=== PATIENT | female | born 1985 ===

== ENCOUNTER 2017-09-28 04:53 | Emergency (ER) | payer MEDICAID ==
[2017-09-28 05:31] VITALS: BMI 30.8
[2017-09-28] MEDS ORDERED: Lactated Ringer's 1,000 ML IV ONE (05:42)
[2017-09-28 06:25] LABS: URINE BILIRUBIN NEGATIVE (NEGATIVE); URINE BLOOD MODERATE (NEGATIVE); URINE CLARITY CLEAR (Clear); URINE COLOR STRAW (YELLOW); URINE GLUCOSE (UA) NEG (Normal); URINE LEUKOCYTE ESTERASE NEG Leu/uL (Negative); URINE NITRATE NEGATIVE (NEGATIVE); URINE PROTEIN NEGATIVE (NEGATIVE); URINE UROBILINOGEN 0.2-1.0 mg/dL (0.2-1.0)
--- NOTE | 2017-09-28 08:53 | OBHP ---
Datetime: 09/28/2017 07:56 IP Adm Impression: , intrauterine IP Admit Plan: Observation/Evaluation; Discharge home Admit Comment, IP Provider: This is 31 y/o F, , IUP@35 weeks by LMP and 1st trimU/S, comes to t he [facility] c/o mild vaginal bleeding which started 4 am this morning. Patient admits having sex lastnigh t. Denies any fever, chills, chest pain, SOB or dizziness. Denies LOF, CTX. Records reviewed and U/S from july 2017 shows : Posterior Placenta, No previ a PMD: Dr. Barber [facility]: No issue with this so far PMH: Denies PSH: Denies OBGYN: , 2 early miscar, 1x FT Allg: Denies SH: Denies alcohol, smoking or illicit drug use FH: HTN, DM VS: Stable PE: Cardiopulmonary and neuro exam unremarkable Pelvic exam: small amont of Clotted blood in vaginal vault, scant bleeding per cervical oz, also 3mm small ectocervical polyp was seen. Cervix is 1 cm and 70% Effa A/P: 31 y/o female with 35GA, Postcoital bleeding- most likely due to Ectocervical polyp Threatened labor - IVF - UA (Negative for any infection) - Discharge home - PTL and 3rd trimBleeding precautions discussed with patient - Pelvic rest to avoid ptd - Follow up with PMD in 2 days Patient was seen and examined with Dr. Heller --- Lester Looney, PGY-1 Pt seen _ examined by me. Agree with above assessment and plan. Pelvic Type - PN: Adequate Extremities - PN: Normal Abdomen - PN: Normal Back - PN: Normal Lungs - PN: Normal Heart - PN: Normal Thyroid - PN: Normal Neurologic - PN: Normal HEENT - PN: Normal General - PN: Normal Presentation-Admit: Vertex FHR - Baseline A Provider: 140 Membranes, Provider: Intact Comments, ACOG Physical Exam: Bleeding was seen with a small polyp in vagina ectocervical polyp vs postcoital bleeding vs threatened PT labor U/S: Vertex presentation EGA AdmitDate IP: 35.0 Vital Signs Provider: Reviewed IP Chief Complaint: Vaginal bleeding NICHD Variability Prov Fetus A: Moderate 6-25bpm NICHD Accel Fetus A IP Provider: [id number] FHR Category Provider Fetus A: Category I NICHD Decel Fetus A IP Provider: None Dilatation, Provider: 1 Effacement, Provider: 70 Station, Provider: -3 Genitourinary Exam: Abnormal
[2017-09-28 12:17] VITALS: BP 115/75; PULSE 76; TEMP 98.4
== END 2017-09-28 07:56 | disposition home or self-care (01) ==
LOC: H.EROB2 04:53
DX: O26.93 Pregnancy related conditions, unspecified, third trimester (principal); N93.0 Postcoital and contact bleeding; O47.9 False labor, unspecified; N84.1 Polyp of cervix uteri; Z3A.35 35 weeks gestation of pregnancy
CPT/HCPCS: 81003; 99283; J7120

== ENCOUNTER 2017-10-25 04:40 | Inpatient (IN) | payer MEDICAID ==
[2017-10-25] MEDS ORDERED: Phenaphthazine-PH Test Paper VI ONE (04:58)
[2017-10-25 05:46] VITALS: BMI 31.5
[2017-10-25] MEDS ORDERED: Oxytocin 30 UNITS in Sodium Chloride 0.9% 500 ML IV SCH (06:00)
[2017-10-25] MEDS ORDERED: Lactated Ringer's 1,000 ML IV SCH ×3 (06:00)
[2017-10-25 06:01] LABS: BASO # 0.1 K/uL (0.0-0.2); BASO % 1.1 % (0.0-2.0); EOS # 0.1 K/uL (0.0-0.7); EOS % 0.5 % (0.0-4.0); HEMOGLOBIN 12.3 g/dL (12.0-16.0); LYMPH # 2.1 K/uL (1.0-4.3); LYMPH % 17.1 % (20.0-40.0); MEAN CELL VOLUME 96.8 fl (81.0-99.0); MEAN CORPUSCULAR HEMOGLOBIN 32.6 pg (27.0-31.0); MEAN CORPUSCULAR HGB CONC 33.7 g/dL (33.0-37.0); MEAN PLATELET VOLUME 8.7 fl (7.2-11.7); MONO # 0.9 K/uL (0.0-0.8); MONO % 7.7 % (0.0-10.0); NEUT % 73.6 % (50.0-75.0); RBC 3.78 Mil/uL (3.80-5.20); RED CELL DISTRIBUTION WIDTH 13.3 % (11.5-14.5); WHITE BLOOD COUNT 12.2 K/uL (4.8-10.8)
[2017-10-25 06:17] VITALS: TEMP 98.4; O2SAT 100
[2017-10-25] MEDS ORDERED: Lidocaine 1% Inj (20ml) ONE (07:20)
--- NOTE | 2017-10-25 08:32 | OBADHP ---
Datetime: 10/25/2017 06:11 Admit Comment, IP Provider: 31 y/o female with IUP at 38.6 weeks (SKIP 11/02) presents with c omplaints of worsening ctx since last night and leakage of fluids. Denies vb. +FM. ROS negative PNC: [facility], Dr. Barber. unremarkable. Labs reviewed wnl, GBS negative OBHx: 2 prior TOP, 2 prior SAB, 1 prior (2011) no complications, full term PMHx: None PSurgHx: none Meds: PNV NKDA Social x3 negative VSS General: NAD, intermittently uncomfortable Cardio: RRR, normal S1, S2, no murmurs Pulm: CTABL AbdomenL Gravid, NT Pelvic: no gross fluid, no pooling, cervix 7cm, 50% effaced, -2 station, nitrazine + FHR: 144, reactive Irregular Ctx on toco Assessment: IUP at 38.6weeks in active labor, +lof Plan: Admit to L_D. Continuous monitoring. Monitor maternal vital signs. CBC, Type and Scree n, IV hydration. Epidural offered, pt declined. Discussed with OB Hospitalist, Dr. Benedict Carranza, PGY1 Pelvic Type - PN: Adequate Extremities - PN: Normal Abdomen - PN: Normal Back - PN: Normal Breast - PN: Not Done Lungs - PN: Normal Heart - PN: Normal Thyroid - PN: Normal Neurologic - PN: Normal HEENT - PN: Normal General - PN: Normal FHR - Baseline A Provider: 144 Pool Provider: Negative Nitrazine Provider: Positive Vital Signs Provider: Reviewed; Within Normal Limits IP Chief Complaint: Uterine contractions; Suspected ruptured membranes FHR Category Provider Fetus A: Category I Dilatation, Provider: 7 Effacement, Provider: 50 Station, Provider: -2 Genitourinary Exam: Normal DTRs - PN: Not Done EGA AdmitDate IP: 38.6 IP Adm Impression: Term, intrauterine IP Admit Plan: Admit to unit; Initiate labor protocol Datetime: 10/25/2017 05:54 Membranes, Provider: Bulging NICHD Variability Prov Fetus A: Moderate 6-25bpm NICHD Accel Fetus A IP Provider: [id number] Datetime: 09/28/2017 07:56 Presentation-Admit: Vertex Comments, ACOG Physical Exam: Bleeding was seen with a small polyp in vagina ectocervical polyp vs postcoital bleeding vs threatened PT labor U/S: Vertex presentation NICHD Decel Fetus A IP Provider: None
--- NOTE | 2017-10-25 08:35 | OBDS ---
MATERNAL INFORMATION Provider Comments: Normal spontaneous vaginal delivery. Patient delivered viable infant female with Apgars of 9 and 9 at one and 5 minutes respectively. I nfant delivered via BHARGAVI position. Placenta delivered spontaneously. Laceration repaired, as above. Ut erus firm and appropriately hemostatic following delivery. Patient tolerated delivery and repair well . No complications. Estimated blood loss 300 mL LABOR SUMMARY EDC: 11/02/2017 00:00 No. Babies in Womb: 1 Attempted: No LABOR INFORMATION Reason for Induction: Not Applicable Onset of Labor: 10/25/2017 00:00 Complete Dilatation: 10/25/2017 07:30 Oxytocin: N/A Group B Beta Strep: Negative Antibiotics # of Doses: n/a Antibiotics Time of Last Dose: n/a Steroids Given: None Reason Steroids Not Administered: Not Applicable MEMBRANES Membranes Rupture Method: Artificial Rupture of Membranes: 10/25/2017 07:46 Length of Rupture (hrs): -167.85 Amniotic Fluid Color: Clear Amniotic Fluid Amount: Moderate Amniotic Fluid Odor: Normal STAGES OF LABOR Stage 1 hrs: 7 Stage 1 min: 30 Stage 2 hrs: -167 Stage 2 min: -35 Stage 3 hrs: 168 Stage 3 min: 6 Total Time in Labor hrs: 8 Total Time in Labor min: 1 VAGINAL DELIVERY Episiotomy: None Laceration Extension: Second Degree Laceration Type: Perineal Laceration Repair: Yes Laceration Repair Note: Second-degree midline perineal laceration. Area infiltrated with 1% lidocain e. Laceration repaired with 2. 0 repeat without complication. Patient tolerated well. Initial Vag Sponge Count: laps=5 with ring and 1 without ring BABY A INFORMATION Infant Delivery Date/Time: 10/18/2017 07:55 Method of Delivery: Vaginal Born in Route : No : N/A Forceps: N/A Vacuum Extraction: N/A Shoulder Dystocia : No SHOULDER DYSTOCIA BABY A Infant Delivery Date/Time: 10/18/2017 07:55 PRESENTATION/POSITION BABY A Presentation: Cephalic Cephalic Presentation: Vertex Breech Presentation: 39.6 PLACENTA INFORMATION BABY A Placenta Delivery Time : 10/25/2017 08:01 Placenta Method of Delivery: Spontaneous Placenta Status: Delivered SCORES BABY A Heart Rate 1 min: >100 bpm Resp Effort 1 min: Good Cry Reflex Irritability 1 min: Cough or Sneeze or Pulls Away Muscle Tone 1 min: Active Motion Color 1 min: Body Miner, Extremities Blue Resuscitation Effort 1 min: Tactile Stimulation SCORE 1 MIN: 9 Heart Rate 5 min: >100 bpm Resp Effort 5 min: Good Cry Reflex Irritability 5 min: Cough or Sneeze or Pulls Away Muscle Tone 5 min: Active Motion Color 5 min: Body Miner, Extremities Blue Resuscitation Effort 5 min: N/A SCORE 5 MIN: 9 INFORMATION BABY A Gestational Age at Delivery: 39.1 Gestational Status: Term Infant Outcome : Liveborn Infant Condition : Stable Sex: Female IDENTIFICATION/MEDS BABY A ID Band Number: [id number] ID Band Location: Left Leg; Left Arm Vitamin K Given : Not Given Erythromycin Given: Not Given WEIGHT/LENGTH BABY A Infant Birthweight (gms): 3325 Weight (lb): 7 Weight (oz): 5 CORD INFORMATION BABY A Nuchal Cord : N/A Nuchal Cord Other: n/a True Knot: n/a Infant Cord pH Baby Arterial: n/a Cord pH Baby Venous: n/a Cord Blood Taken: Yes Banking/Donate Info: n/a Infant Suction: Mouth; Nose ASSESSMENT BABY A Infant Complications: None Physical Findings at Delivery: Within Normal Limits Respirations: Appears Normal [employer]/ALS Called : No Care By: Jalyn Transferred To: Remains with Mother
[2017-10-25] MEDS ORDERED: Oxycodone/Acetaminophen 5/325 mg Tab PO PRN ×2 (09:24)
[2017-10-25] MEDS: Benzocaine/Menthol SPRAY TOP PRN (20:23)
[2017-10-26 08:04] LABS: BASO # 0.1 K/uL (0.0-0.2); BASO % 0.6 % (0.0-2.0); EOS # 0.1 K/uL (0.0-0.7); EOS % 0.4 % (0.0-4.0); HEMOGLOBIN 11.4 g/dL (12.0-16.0); LYMPH # 2.3 K/uL (1.0-4.3); LYMPH % 14.6 % (20.0-40.0); MEAN CELL VOLUME 96.5 fl (81.0-99.0); MEAN CORPUSCULAR HEMOGLOBIN 33.4 pg (27.0-31.0); MEAN CORPUSCULAR HGB CONC 34.6 g/dL (33.0-37.0); MEAN PLATELET VOLUME 8.5 fl (7.2-11.7); MONO # 0.9 K/uL (0.0-0.8); MONO % 5.7 % (0.0-10.0); NEUT # 12.4 K/uL (1.8-7.0); NEUT % 78.7 % (50.0-75.0); NRBC % 0.1 % (0.0-0.0); RBC 3.43 Mil/uL (3.80-5.20); RED CELL DISTRIBUTION WIDTH 13.2 % (11.5-14.5); WHITE BLOOD COUNT 15.8 K/uL (4.8-10.8)
[2017-10-27] MEDS: Benzocaine/Menthol SPRAY TOP PRN (09:26)
--- NOTE | 2017-10-27 14:15 | OBPPN ---
Datetime: 10/26/2017 10:15 PP Pain Prov: Within normal limits PP Nausea Prov: Denies PP Flatus Prov: Yes PP BM Prov: No PP Heart Prov: Normal PP Lungs Prov: Normal PP Abdomen/Uterus Prov: Normal PP Vulva/Perineum Prov: Normal PP CVA Tenderness Prov: Normal PP Extremities Prov: Normal PP Progress Prov: Normal PP Impression Prov: Normal progression PP Plan Prov: Continue present management PP Progress Note Prov: PPD 1 31 y/o female now on PPD 1 seen and examined at bedside this morning. No overnight events. Reports pain is controlled with pain medications. Voiding freely w/o blood noted. Pt reports passing gas per rectum but no BM yet. Ambulating well w/o dizziness. Lochia is similar to menses volume. Pt is w/o difficulty. Denies nausea, vomiting, fever, chills, chest pain or calf pain. Physical Exam: General: A_O, resting comfortably in bed, NAD HEENT: oral mucosa moist. Lungs: CTA B/L, no wheezing, rhonchi or rales CVS: RRR, S1, S2 ABD: ND, +BS, firm fundus @ umbilical level. Soft, appropriate TTP. EXT: no edema, negative Pricila's sign, Neuro/psych: AAOX3. assessment: 31 y/o now doing well on PDD 1 Plan: OOB w/ caution Regular diet Percocet and Ibuprofen for pain management Encourage and ambulation Anticipate discharge tomorrow Sultan Paige, PGY1 Case d/w OB attending Dr. Koo Vital Signs Provider PP: Reviewed; Within Normal Limits Datetime: 10/25/2017 06:15 PP Breasts Prov: Not Done PP Lochia Prov: Normal PP C/S Incision Prov: Not Applicable
[2017-10-27 17:10] VITALS: BP 121/70; PULSE 76; RESP 20
== END 2017-10-27 11:40 | disposition home or self-care (01) | DRG 373 ==
LOC: H.EROB2 04:40 → H.L&D 05:50 → H.OB/GYN 10:18
PROVIDERS: ADMIT Obstetrics & Gynecology; ATTEND Obstetrics & Gynecology
PROC: 10E0XZZ Delivery of Products of Conception, External Approach (ICD-10-PCS; principal; 2017-10-25)
PROC: 0KQM0ZZ Repair Perineum Muscle, Open Approach (ICD-10-PCS; 2017-10-25)
PROC: 10907ZC Drainage of Amniotic Fluid, Therapeutic from Products of Conception, Via Natural or Artificial Opening (ICD-10-PCS; 2017-10-25)
PROC: 4A1HXCZ Monitoring of Products of Conception, Cardiac Rate, External Approach (ICD-10-PCS; 2017-10-25)
DX: O70.1 Second degree perineal laceration during delivery (principal); Z37.0 Single live birth; Z3A.39 39 weeks gestation of pregnancy